=== PATIENT | female | born 1990 | race Two or more races ===

== ENCOUNTER 2017-07-24 09:44 | Emergency (ER) | payer OTHER ==
[2017-07-24 10:00] VITALS: BMI 30.9
[2017-07-24 11:28] VITALS: BP 116/85; PULSE 100; TEMP 98
[2017-07-24 13:06] LABS: URINE APPEARANCE SLCLOUDY; URINE BILIRUBIN NEGATIVE (<2.0 mg/dL); URINE BLOOD NEGATIVE (NEGATIVE); URINE COLOR YELLOW; URINE GLUCOSE (UA) NEGATIVE (NEGATIVE); URINE KETONE NEGATIVE (NEGATIVE); URINE LEUK ESTERASE TRACE (NEGATIVE); URINE NITRITE NEGATIVE (NEGATIVE); URINE PROTEIN NEGATIVE (NEGATIVE); URINE UROBILINOGEN NEGATIVE mg/dL (0.2-1.0)
[2017-07-24 13:27] LABS: EPI CELLS MODERATE /HPF (FEW); URINE MUCUS RARE
== END 2017-07-24 13:40 | disposition home or self-care (01) ==
LOC: JER 09:44
DX: O26.893 Other specified pregnancy related conditions, third trimester (principal); R10.84 Generalized abdominal pain; M54.5 Low back pain; R51 Headache; Z3A.30 30 weeks gestation of pregnancy
CPT/HCPCS: 76801-TC; 81003; 81015; 99281-25

== ENCOUNTER 2017-09-06 23:00 | Inpatient (IN) | payer OTHER ==
[~2017-09-06 23:00] MED LIST: CITRIC ACID/SODIUM CITRATE 30 ML UNIT-DOSE CUP PO ONE; ELECTROLYTE-148 SOLN 500 ML IV ONE
[2017-09-06] MEDS ORDERED: ELECTROLYTE-148 SOLN 500 ML IV ONE (23:30)
[2017-09-06] MEDS ORDERED: ONDANSETRON 4 MG/2 ML VIAL IVPUSH PRN (23:40)
[2017-09-06 23:45] LABS: BASO % 0.9 % (0-2.0); EOS % 2.7 % (0-4.5); HEMATOCRIT 35.2 % (32.4-45.2); HEMOGLOBIN 12.3 GM/dL (10.7-15.3); LYMPH % 21.4 % (8-40); MEAN CELL VOLUME 91.5 fl (80-96); MEAN PLT VOLUME 9.8 fl (7.5-11.1); MONO % 9.1 % (3.8-10.2); NEUT % 65.9 % (42.8-82.8); PLATELET COUNT 270 K/MM3 (134-434); RBC 3.85 M/mm3 (3.60-5.2); RDW 13.7 % (11.6-15.6); WHITE BLOOD COUNT 13.1 K/mm3 (4.0-10.0)
[2017-09-07] MEDS ORDERED: CITRIC ACID/SODIUM CITRATE 30 ML UNIT-DOSE CUP PO ONE (00:08)
[2017-09-07] MEDS ORDERED: METHYLERGONOVINE MALEATE 0.2 MG/1 ML AMP IM PRN (00:08)
[2017-09-07 00:10] LABS: INR 1.02 (0.82-1.09); PROTHROMBIN TIME (PATIENT) 11.5 SEC (9.7-13.0)
[2017-09-07 00:13] LABS: ACTIVATED PTT 26.3 SECONDS (26.9-34.4)
--- NOTE | 2017-09-07 00:14 | HP ---
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: Alzheimer's, CVA, Dementia, Migraine, Multiple Sclerosis, Peripheral Neuropathy, Parkinson's, Seizure, Syncope, TIA, Vertigo, Other Cardiovascular: No: AFIB, Aneurysm, Aortic Insufficiency, Aortic Stenosis, CAD, CHF, Deep Vein Thrombosis, HTN, Hyperlipdemia, [place], Mitral Insufficiency, Mitral Stenosis, Murmur, Pulmonary Hypertension, Other Pulmonary: No: Asthma, Bronchitis, Cancer, COPD, O2 Dependent, Pneumonia, Previously Intubated, Pulmonary Embolus, Pulmonary Fibrosis, Sleep Apnea, Other Gastrointestinal: No: Ascites, Cancer, Constipation, Crohn's Disease, Diverticulitis, Diverticulosis, Esophageal Varices, Gastritis, GERD, GI Bleed, Hemorrhoids, Hiatal Hernia, Inflamatory Bowel Disease, Irritable Bowel Disease, Pancreatitis, Peptic Ulcer Disease, Ulcerative Colitis, Other Hepatobiliary: No: Cirrhosis, Cholelithiasis, Cholecystitis, Choledocholithiasis , Hepatitis A, Hepatitis B, Hepatitis C, Other Renal/: No: Renal Failure, Renal Inusuff, BPH, Cancer, Hematuria, Hemodialysis , Neurogenic Bladder, Renal Calculi, UTI, Other Reproductive: No: Ectopic , Endometriosis, Fibroids, PID, Polycystic Ovary Syndrome, Postmenopausal, Other Heme/Onc: No: Anemia, B12 Deficiency, Bleeding Disorder, Cancer, Current Chemotherapy, Current Radiation Therapy, Hemochromatosis, Hypercoaguable State, Myeloproliferative Synd, Sickle Cell Disease, Sickle Cell Trait, Thrombocytopenia, Other Infectious Disease: No: AIDS, C-Diff, Herpes Zoster, HIV, MRSA, STD's, Tuberculosis, VREF, Other Psych: No: Addictions, Anxiety, Bipolar, Depression, Panic, Psychosis, Schizophrenia, Other Musculoskeletal: No: Bursitis, Chronic low back pain, Hemiparesis, Hemiplegia, Osteoarthritis, Paraplegia, Other Rheumatology: No: Fibromyalgia, Gout, Lupus, Rheumatoid Arthritis, Sarcoidosis, Vasculitis, Other ENT: No: Allergic Rhinitis, Sinusitis, Other Endocrine: No: Boyd's Disease, Gianfranco's Disease, Diabetes Insipidus, Diabetes Mellitus, Hyperparathyroidism, Hyperthyroidism, Hypothyroidism, Osteopenia, SIADH, Other - Smoking History Smoking history: Never smoked Home Medications - Allergies Allergies/Adverse Reactions: Allergies Allergy/AdvReac Type Severity Reaction Status Date / Time No Known Allergies Allergy Verified 08/12/17 10:46 - Home Medications Home Medications: Ambulatory Orders Vit No.130/Iron/Folic [ Vitamins] 1 each PO DAILY 07/24/17 Review of Systems - Review of Systems Constitutional: reports: No Symptoms Eyes: reports: No Symptoms HENT: reports: No Symptoms Neck: reports: No Symptoms Cardiovascular: reports: No Symptoms Respiratory: reports: No Symptoms Gastrointestinal: reports: No Symptoms Genitourinary: reports: No Symptoms Musculoskeletal: reports: No Symptoms Integumentary: reports: No Symptoms Neurological: reports: No Symptoms Endocrine: reports: No Symptoms Hematology/Lymphatic: reports: No Symptoms Psychiatric: reports: No Symptoms Physical Examination Constitutional: Yes: Well Nourished Eyes: Yes: WNL HENT: Yes: WNL Neck: Yes: WNL Cardiovascular: Yes: WNL Respiratory: Yes: WNL Gastrointestinal: Yes: WNL ...Rectal Exam: Yes: WNL Renal/: Yes: WNL Breast(s): Yes: WNL Musculoskeletal: Yes: WNL Extremities: Yes: WNL Labs: CBC, BMP 09/06/17 23:40 Assessment/Plan as above for admit for cs
[2017-09-07] MEDS ORDERED: morphine SULFATE/Preservative Free 0.5 MG/ML (1cc Syringe) ONE (00:17)
[2017-09-07 00:20] LABS: ANION GAP 12 (8-16); BLOOD UREA NITROGEN 5 mg/dL (7-18); CALCIUM 9.3 mg/dL (8.5-10.1); CHLORIDE 103 mmol/L (98-107); CO2 22 mmol/L (21-32); CREATININE 0.5 mg/dL (0.55-1.02); GLUCOSE,RANDOM 108 mg/dL (74-106); POTASSIUM 4.2 mmol/L (3.5-5.1); SODIUM 137 mmol/L (136-145)
[2017-09-07] MEDS ORDERED: BUPIVACAINE 0.75% IN DEXTROSE/PF 2ML AMPULE NR ONE (00:23)
[2017-09-07] MEDS ORDERED: SUCCINYLCHOLINE CHLORIDE 200 MG/10 ML VIAL ONE (00:41)
[2017-09-07] MEDS ORDERED: OXYTOCIN 10 UNITS/ML VIAL ONE (00:49)
[2017-09-07] MEDS ORDERED: OXYTOCIN 20 UNITS in 0.9% NS 20 UNIT/1,000 ML INFUS.BAG IV ONE (01:27)
[2017-09-07] MEDS: OXYTOCIN 20 UNITS in 0.9% NS 20 UNIT/1,000 ML INFUS.BAG IV SCH ×2 (01:30→10:17)
[2017-09-07 01:44] VITALS: BMI 30.9
[2017-09-07] MEDS ORDERED: TUBERCULIN PPD 5 TU/0.1ML SYRINGE (IN PATIENT USE ONLY) ID ONE (04:00)
[2017-09-07] MEDS: IBUPROFEN 800 MG/8 ML IJ IVPB PRN ×3 (04:46→16:02)
[2017-09-07] MEDS: ACETAMINOPHEN 325 MG TABLET (FP) PO PRN (21:04)
[2017-09-07] MEDS: IBUPROFEN 600 MG TABLET (FP) PO PRN (21:05)
[2017-09-08] MEDS ORDERED: BISACODYL 10 MG SUPP.RECT RC PRN (00:08)
[2017-09-08] MEDS: oxyCODONE HCL 5 MG TABLET PO PRN ×4 (03:00→19:22)
[2017-09-08] MEDS: IBUPROFEN 600 MG TABLET (FP) PO PRN ×4 (03:00→19:22)
[2017-09-08 07:05] LABS: BASO % 0.4 % (0-2.0); EOS % 3.7 % (0-4.5); HEMATOCRIT 33.1 % (32.4-45.2); HEMOGLOBIN 11.3 GM/dL (10.7-15.3); LYMPH % 25.8 % (8-40); MCH 31.8 pg (25.7-33.7); MCHC 34.3 g/dl (32.0-36.0); MEAN CELL VOLUME 92.7 fl (80-96); MEAN PLT VOLUME 9.1 fl (7.5-11.1); MONO % 9.8 % (3.8-10.2); NEUT % 60.3 % (42.8-82.8); PLATELET COUNT 241 K/MM3 (134-434); RBC 3.57 M/mm3 (3.60-5.2); WHITE BLOOD COUNT 11.9 K/mm3 (4.0-10.0)
[2017-09-08] MEDS ORDERED: DIPHTH,PERTUSS(ACELL),TET 0.5 ML DISP.SYRIN IM ONE (10:00)
--- NOTE | 2017-09-08 14:15 | PN ---
Progress Note (short form) - Note Progress Note: Anesthesia POD#1 S/P under Spinal anesthesia VSS,eating well,no N/V,legs are strong. some itch present. A/P No complications to anesthesia seen. Funmi Lima MD.
--- NOTE | 2017-09-08 19:01 | PN ---
Post Progress Note - Subjective Subjective: 27 yo Para 2 status post repeat , seen and evaluated. She c/o incision pain. Post Day: 1 Type of Delivery: Repeat C/S Vital Signs: Vital Signs Temperature 98.6 F 09/08/17 18:00 Pulse Rate 64 09/08/17 18:00 Respiratory Rate 18 09/08/17 18:00 Blood Pressure 118/68 09/08/17 18:00 O2 Sat by Pulse Oximetry (%) 100 09/07/17 02:30 Breast Exam: Yes: Soft Uterus: Yes: Fundus Firm Incision: Yes: Oscar intact Lochia: Yes: Rubra Lochia, amount: Small Extremities: Yes: Calves non-tender Activity: Ambulating - Labs Labs: CBC WBC 11.9 K/mm3 (4.0-10.0) H 09/08/17 06:40 RBC 3.57 M/mm3 (3.60-5.2) L 09/08/17 06:40 Hgb 11.3 GM/dL (10.7-15.3) 09/08/17 06:40 Hct 33.1 % (32.4-45.2) 09/08/17 06:40 MCV 92.7 fl (80-96) 09/08/17 06:40 MCH 31.8 pg (25.7-33.7) 09/08/17 06:40 MCHC 34.3 g/dl (32.0-36.0) 09/08/17 06:40 RDW 14.0 % (11.6-15.6) 09/08/17 06:40 Plt Count 241 K/MM3 (134-434) 09/08/17 06:40 MPV 9.1 fl (7.5-11.1) 09/08/17 06:40 Neutrophils % 60.3 % (42.8-82.8) 09/08/17 06:40 Lymphocytes % 25.8 % (8-40) D 09/08/17 06:40 Monocytes % 9.8 % (3.8-10.2) 09/08/17 06:40 Eosinophils % 3.7 % (0-4.5) 09/08/17 06:40 Basophils % 0.4 % (0-2.0) 09/08/17 06:40 Problem List - Problems (1) Status post repeat low transverse section Code(s): Z98.891 - HISTORY OF UTERINE SCAR FROM PREVIOUS SURGERY Assessment/Plan Status post repeat Stable Analgesia as needed Continue routine post op care
[2017-09-08] MEDS: SIMETHICONE 80 MG TAB.CHEW (FP) PO PRN (19:21)
[2017-09-08] MEDS: ACETAMINOPHEN 325 MG TABLET (FP) PO PRN (21:22)
[2017-09-09] MEDS: ACETAMINOPHEN 325 MG TABLET (FP) PO PRN ×5 (03:06→23:07)
[2017-09-09] MEDS: SIMETHICONE 80 MG TAB.CHEW (FP) PO PRN ×4 (03:06→23:06)
[2017-09-09] MEDS: oxyCODONE HCL 5 MG TABLET PO PRN ×2 (03:07→23:06)
[2017-09-09] MEDS: IBUPROFEN 600 MG TABLET (FP) PO PRN ×4 (03:07→23:07)
--- NOTE | 2017-09-09 14:16 | PN ---
Post Progress Note - Subjective Subjective: 27 yo Para 3 status post repeat , seen and evaluated. She c/o finger joint pain not associated with swelling. Extensive discussion with patient. She was advised to see primary physician as outpatient. Post Day: 2 Type of Delivery: Repeat C/S Vital Signs: Vital Signs Temperature 97.3 F L 09/09/17 08:00 Pulse Rate 70 09/09/17 08:00 Respiratory Rate 18 09/09/17 08:00 Blood Pressure 116/60 09/09/17 08:00 O2 Sat by Pulse Oximetry (%) 100 09/07/17 02:30 Breast Exam: Yes: Soft Uterus: Yes: Fundus Firm Incision: Yes: Oscar intact Abdomen/GI: Yes: Abdomen soft, Tolerating PO Lochia: Yes: Rubra Lochia, amount: Small Extremities: Yes: Calves non-tender Perineum: Yes: Intact Activity: Ambulating - Labs Labs: CBC WBC 11.9 K/mm3 (4.0-10.0) H 09/08/17 06:40 RBC 3.57 M/mm3 (3.60-5.2) L 09/08/17 06:40 Hgb 11.3 GM/dL (10.7-15.3) 09/08/17 06:40 Hct 33.1 % (32.4-45.2) 09/08/17 06:40 MCV 92.7 fl (80-96) 09/08/17 06:40 MCH 31.8 pg (25.7-33.7) 09/08/17 06:40 MCHC 34.3 g/dl (32.0-36.0) 09/08/17 06:40 RDW 14.0 % (11.6-15.6) 09/08/17 06:40 Plt Count 241 K/MM3 (134-434) 09/08/17 06:40 MPV 9.1 fl (7.5-11.1) 09/08/17 06:40 Neutrophils % 60.3 % (42.8-82.8) 09/08/17 06:40 Lymphocytes % 25.8 % (8-40) D 09/08/17 06:40 Monocytes % 9.8 % (3.8-10.2) 09/08/17 06:40 Eosinophils % 3.7 % (0-4.5) 09/08/17 06:40 Basophils % 0.4 % (0-2.0) 09/08/17 06:40 Problem List - Problems (1) Status post repeat low transverse section Code(s): Z98.891 - HISTORY OF UTERINE SCAR FROM PREVIOUS SURGERY Assessment/Plan Status post repeat Stable Analgesia as needed Continue routine post op care
[2017-09-10] MEDS: ACETAMINOPHEN 325 MG TABLET (FP) PO PRN (08:40)
[2017-09-10] MEDS: SIMETHICONE 80 MG TAB.CHEW (FP) PO PRN (08:41)
[2017-09-10] MEDS: IBUPROFEN 600 MG TABLET (FP) PO PRN (08:41)
[2017-09-10 08:57] LABS: BASO % 0.5 % (0-2.0); EOS % 5.6 % (0-4.5); HEMATOCRIT 34.7 % (32.4-45.2); HEMOGLOBIN 11.6 GM/dL (10.7-15.3); LYMPH % 32.5 % (8-40); MCH 31.8 pg (25.7-33.7); MCHC 33.6 g/dl (32.0-36.0); MEAN CELL VOLUME 94.7 fl (80-96); MEAN PLT VOLUME 9.1 fl (7.5-11.1); MONO % 7.7 % (3.8-10.2); NEUT % 53.7 % (42.8-82.8); PLATELET COUNT 293 K/MM3 (134-434); RBC 3.66 M/mm3 (3.60-5.2); RDW 14.1 % (11.6-15.6)
--- NOTE | 2017-09-10 08:59 | PN ---
Post Progress Note - Subjective Subjective: c/o pain at incision site 5/10 pain in the hands less Post Day: 3 Type of Delivery: Repeat C/S Vital Signs: Vital Signs Temperature 97.6 F 09/09/17 22:00 Pulse Rate 89 09/09/17 22:00 Respiratory Rate 20 09/09/17 22:00 Blood Pressure 128/89 09/09/17 22:00 O2 Sat by Pulse Oximetry (%) 100 09/07/17 02:30 Breast Exam: Yes: Soft, Other (BF ). No: Engorged Uterus: Yes: Fundus Firm, Fundus below umbilicus, Non-tender Incision: Yes: Oscar intact. No: Redness, Oozing Abdomen/GI: Yes: Abdomen soft, Passing flatus, Tolerating PO (diet ). No: Abdominal Distention, Tender Lochia: Yes: Rubra Lochia, amount: Moderate Extremities: Yes: Calves non-tender Perineum: Yes: Intact Activity: Ambulating - Labs Labs: CBC WBC 11.9 K/mm3 (4.0-10.0) H 09/08/17 06:40 RBC 3.57 M/mm3 (3.60-5.2) L 09/08/17 06:40 Hgb 11.3 GM/dL (10.7-15.3) 09/08/17 06:40 Hct 33.1 % (32.4-45.2) 09/08/17 06:40 MCV 92.7 fl (80-96) 09/08/17 06:40 MCH 31.8 pg (25.7-33.7) 09/08/17 06:40 MCHC 34.3 g/dl (32.0-36.0) 09/08/17 06:40 RDW 14.0 % (11.6-15.6) 09/08/17 06:40 Plt Count 241 K/MM3 (134-434) 09/08/17 06:40 MPV 9.1 fl (7.5-11.1) 09/08/17 06:40 Neutrophils % 60.3 % (42.8-82.8) 09/08/17 06:40 Lymphocytes % 25.8 % (8-40) D 09/08/17 06:40 Monocytes % 9.8 % (3.8-10.2) 09/08/17 06:40 Eosinophils % 3.7 % (0-4.5) 09/08/17 06:40 Basophils % 0.4 % (0-2.0) 09/08/17 06:40 Other Findings, Remarks: hands , fingers no remarkabe swelling noted pt can close the fit after encouraging her movements of the hands & fingers Assessment/Plan s/p c/section 3 rd day requests for discharge
[2017-09-10 09:57] VITALS: BP 111/69; PULSE 75; TEMP 98
--- NOTE | 2017-09-15 17:39 | PATH ---
Surgical Pathology Report Patient Name: CULLEN BURT [facility]. Rec. #: [id number] /Age/Gender: 1990 (Age: 27) / F Account: [id number] Location: [facility] OBS/REIMBURSEMENT SPECIALIST Taken: 09/07/2017 Received: 09/08/2017 Reported: 09/15/2017 Physicians: Pablo Reeys M.D. Specimen(s) Received A: PLACENTA B: LEFT PORTION FALLOPIAN TUBE C: RIGHT FALLOPIAN TUBE Clinical History , 38.5 weeks gestation Previous x2 in labor Final Diagnosis A. PLACENTA, SECTION: 517 g THIRD TRIMESTER PLACENTA WITH TRIVASCULAR UMBILICAL CORD AND UNREMARKABLE PLACENTAL MEMBRANES. B. FALLOPIAN TUBE, LEFT, PARTIAL EXCISION: FULL LUMINAL PORTION OF UNREMARKABLE FALLOPIAN TUBE. C. FALLOPIAN TUBE, RIGHT, PARTIAL EXCISION: FULL LUMINAL PORTION OF UNREMARKABLE FALLOPIAN TUBE. Electronically Signed Ariane Ricardo M.D. Gross Description A. The specimen is received fresh labeled placenta and is a 517 gram, 17.0 x 14.5 x 3.0 cm. placenta with attached membranes and umbilical cord. The attached membranes are ramírez, translucent with focal opacities and insert marginally. The umbilical cord measures 25 cm. in length and averages 1.2 cm. in diameter. The cord inserts eccentrically, 5.5 cm. to the nearest margin. No true knots or strictures are identified. Cut surface of the umbilical cord reveals 3 vessels. The surface is ley-blue with minimal fibrin deposition and appropriate caliber vessels. The maternal surface is red-brown with focal defects. Sectioning reveals red-brown, spongy parenchyma. No lesions are identified. Student Life Coordinator sections are submitted in three cassettes as follows: 1- membrane rolls and umbilical cord; 2-3- full thickness sections of placenta. B. Received in formalin labeled "left portion of fallopian tube," is a 1.5 cm in length portion of fallopian tube. No fimbria are present. The outer surface is ramírez-roebrts and smooth. Sectioning reveals an unremarkable lumen. Student Life Coordinator sections are submitted in one cassette. C. Received in formalin labeled "right fallopian tube," is a 1.2 cm in length portion of fallopian tube. No fimbria are present. The outer surface is ramírez ley and smooth. Sectioning reveals an unremarkable lumen. Student Life Coordinator sections are submitted in one cassette. 09/12/2017 [facility]09/12/2017
== END 2017-09-10 13:05 | disposition home or self-care (01) | DRG 540 ==
LOC: JLDR 23:00 → J3W 09-07 03:03
PROVIDERS: ADMIT Obstetrics & Gynecology; ATTEND Obstetrics & Gynecology
PROC: 10D00Z1 Extraction of Products of Conception, Low, Open Approach (ICD-10-PCS; principal; 2017-09-07)
DX: O34.219 Maternal care for unspecified type scar from previous cesarean delivery (principal); Z3A.38 38 weeks gestation of pregnancy; Z37.0 Single live birth
CPT/HCPCS: 36415; 80048; 85025; 85610; 85730; 86593; 86850; 86900; 86901; 88302-TC; 88307-TC; 90715

== ENCOUNTER 2017-09-15 16:54 | Emergency (ER) | payer OTHER ==
--- NOTE | 2017-09-15 17:17 | PDOC ---
Rapid Medical Evaluation Time Seen by Provider: 09/15/17 17:17 Medical Evaluation: Allergies Allergy/AdvReac Type Severity Reaction Status Date / Time No Known Allergies Allergy Verified 08/12/17 10:46 09/15/17 17:17 27 year old female s/p c/s here on 09/07, main removed today at [address] [place] [address], now with wound dehiscence with scant blood. Has pain at the site (feels "poking "). Alert, oriented, appears uncomfortable. V/s unremarkable. -To Main ED for further evaluation.
[2017-09-15 17:22] VITALS: BP 126/69; PULSE 91; TEMP 98.1; BMI 27.6
== END 2017-09-15 23:27 | disposition left against medical advice (07) ==
LOC: JER 16:54
DX: Z53.21 Procedure and treatment not carried out due to patient leaving prior to being seen by health care provider (principal)
CPT/HCPCS: 99281-25

== ENCOUNTER 2017-09-25 08:17 | Emergency (ER) | payer OTHER ==
[2017-09-25 08:24] VITALS: BP 114/66; PULSE 71; TEMP 97.8; BMI 27.6
--- NOTE | 2017-09-25 08:36 | PDOC ---
Attending Attestation - Resident Resident Name: Leonardo Lu - ED Attending Attestation I have performed the following: I have examined & evaluated the patient, The case was reviewed & discussed with the resident, I agree w/resident's findings & plan - HPI HPI: 09/25/17 09:00 The patient is a 27 year old female(, s/p on 09/07/17), with no significant past medical history, who presents to the emergency department with incisional pain for approximately 1 week. She states her wound was healing a week after surgery, however, as of last week she began to develop a "pulling pain" at her incision site (left worse than right). Patient reports pain at her incision site and states it feels like it is opening up. She denies any surrounding erythema, discharge, or increased warmth. Patient endorses a subjective fever yesterday, which she took Tylenol and Motrin for with moderate relief. Patient denies any abdominal pain, nausea, vomiting, diarrhea, or constipation. She denies any vaginal discharge, dysuria, hematuria, frequency, or urgency. She denies any chills, headache, or dizziness. She denies any heavy lifting, recent travel or sick contacts. Allergies: NKDA Past Surgical History: Social History: Non smoker. No ETOH or recreational drug use. OB: Dr. Matamoros - Medical Decision Making 09/25/17 09:02 Documentation prepared by Ele Calvillo, acting as medical tech for Carol Ann Brambila MD. <Ele Calvillo - Last Filed: 09/25/17 09:00> - Physicial Exam PE: 09/25/17 09:34 Agree with resident exam. Wound is clean, dry and intact, with steristrips in place. No erythema. There is a very small, less than 1 cm superficial opening on the R edge of the wound that extends to the subcutaneous tissue only. Abdomen is mildly tender to deep palpation. - Medical Decision Making Pt presents to the ED complaining of small opening in her wound. Denies other complaints except for lower abdominal pain that has been persistent since her operation but has recently gottem worse. Abdomen is non tender. Will check UA and likely discharge home with referral to SEO COORDINATOR if UA is negative. 09/25/17 09:41 <Carol Ann Brambila - Last Filed: 09/25/17 09:44>
[2017-09-25] MEDS ORDERED: ACETAMINOPHEN 325 MG TABLET (FP) PO ONE (09:02)
[2017-09-25] MEDS ORDERED: ACETAMINOPHEN 325 MG TABLET (FP) ONE (09:04)
--- NOTE | 2017-09-25 09:05 | PDOC ---
History of Present Illness - General Chief Complaint: Wound Stated Complaint: c section / WOUND OPENING Time Seen by Provider: 09/25/17 08:36 History Source: Patient Exam Limitations: Language Barrier (Gill Box Fixer [id number]) - History of Present Illness Initial Comments: 09/25/17 09:03 The patient is a 27F with no PMH who presents to the ER with complaints of wound opening and pain. The patient states that she had a c/s on September 07 and had pain that improved after the operation. She states that 1.5 weeks ago, she began to feel worsening of the pain at the edges of the incision which she describes as a pulling pain, L worse than the R. She denies any fever, chills, nausea, vomiting, dysuria, hematuria, discharge. Past History - Past Medical History Allergies/Adverse Reactions: Allergies Allergy/AdvReac Type Severity Reaction Status Date / Time No Known Allergies Allergy Verified 09/25/17 08:19 Home Medications: Ambulatory Orders NK [No Known Home Medication] 09/25/17 Asthma: No Cancer: No Cardiac Disorders: No COPD: No DVT: No Diabetes: No HTN: No Seizures: No Thyroid Disease: No - Suicide/Smoking/Psychosocial Hx Smoking History: Never smoked Have you smoked in the past 12 months: No Information on smoking cessation initiated: No Hx Alcohol Use: No Drug/Substance Use Hx: No Substance Use Type: None Hx Substance Use Treatment: No Review of Systems - Review of Systems Able to Perform ROS?: Yes Comments:: 09/25/17 09:08 GENERAL/CONSTITUTIONAL: No fever or chills. No weakness. HEAD, EYES, EARS, NOSE AND THROAT: No change in vision. No ear pain or discharge. No sore throat. CARDIOVASCULAR: No chest pain, palpitations, or lightheadedness. RESPIRATORY: No cough, wheezing, shortness of breath, or hemoptysis. GASTROINTESTINAL: Positive for abdominal pain near incision. No nausea, vomiting , diarrhea, or constipation. GENITOURINARY: No dysuria, frequency, hematuria, or change in urination. MUSCULOSKELETAL: No joint or muscle swelling or pain. No neck or back pain. SKIN: No rash or lesions. NEUROLOGIC: No headache, numbness, tingling, weakness, loss of consciousness, or change in strength/sensation. ENDOCRINE: No increased thirst. No abnormal weight change. HEMATOLOGIC/LYMPHATIC: No anemia, easy bleeding, or history of blood clots. ALLERGIC/IMMUNOLOGIC: No hives or skin allergy. Is the patient limited Stateless proficient: No *Physical Exam - Vital Signs Last Vital Signs Temp Pulse Resp BP Pulse Ox 97.8 F 71 18 114/66 100 09/25/17 08:19 09/25/17 08:19 09/25/17 08:19 09/25/17 08:19 09/25/17 08:19 - Physical Exam Comments: 09/25/17 09:09 GENERAL: Well developed, well nourished. Awake and alert. No acute distress. HEENT: Normocephalic, atraumatic. Hearing grossly normal. Moist mucous membranes. PERRLA, EOMI. No conjunctival pallor. Sclera are non-icteric. NECK: Supple. Full ROM. CARDIOVASCULAR: Regular rate and rhythm. No murmurs, rubs, or gallops. PULMONARY: No evidence of respiratory distress. Lungs clear to auscultation bilaterally. No wheezing, rales or rhonchi. ABDOMINAL: Soft. Tender on b/l edges of incision w/o rebound or guarding. Well- healing suprapubic incision with steri-strips present. Non-distended. GENITOURINARY: No CVA tenderness bilaterally. MUSCULOSKELETAL: Normal range of motion at all joints. No bony deformities or tenderness. EXTREMITIES: No cyanosis. No clubbing. No edema. No calf tenderness or swelling. SKIN: Warm and dry. Normal capillary refill. No rashes. No jaundice. NEUROLOGICAL: Alert, awake, appropriate. Cranial nerves 2-12 intact. Normal speech. Gait is normal without ataxia. PSYCHIATRIC: Cooperative. Good eye contact. Appropriate mood and affect. Medical Decision Making - Medical Decision Making 09/25/17 09:11 The patient is a 27F who presents with abdominal pain. Pt states she took one pill of tylenol and motrin yesterday with some relief. Will treat pain with adequate dose of tylenol. Incision is healing well. Pending UA. 09/25/17 10:02 Pt feels better on reassessment. Pending UA. 09/25/17 10:18 UA equivocal. Pt denies any symptoms. Will d/c with OB f/u. *DC/Admit/Observation/Transfer Diagnosis at time of Disposition: Status post repeat low transverse section Abdominal pain Qualifiers: Abdominal location: lower abdomen, unspecified Qualified Code(s): R10.30 - Lower abdominal pain, unspecified - Discharge Dispostion Disposition: HOME Condition at time of disposition: Stable Decision to Admit order: No - Referrals Referrals: Fannie Vivas A [Primary Care Provider] - - Patient Instructions Printed Discharge Instructions: DI for Additional Instructions: Por favor florencio un seguimiento con romero OB / Consumer Loan Manager en 2-3 aj. [place] 650 mg de Tylenol cada 6 horas segn sea necesario para el dolor. Por favor regrese a la brayan de emergencia si tiene signos o sntomas de dolor en el pecho, dificultad para respirar, fiebre incontrolable, escalofros, nuseas, vmitos, entumecimiento, hormigueo o debilidad en cualquier parte de romero cuerpo, cambios en la visin o dificultad para hablar. Por favor regrese a la brayan de emergencias si los sntomas persisten, empeoran o surgen nuevos sntomas. Please follow up with your field checker in 2-3 days. Take 650 mg tylenol every 6 hours as needed for pain. Please return to the ER if you have any signs or symptoms of chest pain, shortness of breath, uncontrollable fever, chills, nausea, vomiting, numbness, tingling, or weakness in any part of your body, changes in vision, or slurred speech. Please return to the ER if symptoms persist, worsen, or new symptoms arise. Print Language: MAURITIAN - Post Discharge Activity
[2017-09-25 09:51] LABS: URINE APPEARANCE CLEAR; URINE BILIRUBIN NEGATIVE (<2.0 mg/dL); URINE COLOR LTYELLOW; URINE GLUCOSE (UA) NEGATIVE (NEGATIVE); URINE KETONE NEGATIVE (NEGATIVE); URINE NITRITE NEGATIVE (NEGATIVE); URINE PROTEIN NEGATIVE (NEGATIVE); URINE UROBILINOGEN NEGATIVE mg/dL (0.2-1.0)
[2017-09-25 10:00] LABS: URINE LEUK ESTERASE 2+ (NEGATIVE)
[2017-09-25 10:07] LABS: EPI CELLS RARE /HPF (FEW); URINE BACTERIA RARE /hpf (NONE SEEN)
== END 2017-09-25 10:26 | disposition home or self-care (01) ==
LOC: JER 08:17
DX: O90.0 Disruption of cesarean delivery wound (principal); G89.18 Other acute postprocedural pain
CPT/HCPCS: 81003; 81015; 87086; 87186; 99282-25